=== PATIENT | male | born 1990 | race Caucasian/White ===

== ENCOUNTER 2018-09-30 14:27 | Emergency (ER) | payer OTHER ==
[~2018-09-30] VITALS: Ht 185.4 cm; Wt 65.8 kg
[~2018-09-30 14:27] MED LIST: CETI10 PO; DIPH50 PO; HYDACE5 PO; OXYACE5T PO; PERM5TC TOP; PRED10 PO; PROM25 PO; RANI150 PO; Zofran Odt4 MG SL
== END 2018-09-30 15:34 | disposition home or self-care (01) ==
LOC: ER 14:27
DX: L72.0 Epidermal cyst (principal); F17.210 Nicotine dependence, cigarettes, uncomplicated
CPT/HCPCS: 99282